=== PATIENT | female | born 1960 | race Caucasian/White ===

== ENCOUNTER 2021-12-31 01:17 | Day surgery (SDC) | payer BC, SELFPAY ==
[2021-12-17 09:24] VITALS: BMI 29.0
--- NOTE | 2021-12-30 14:31 | WPDANESEPPF ---
Anes - Initial Pre Proc Eval Procedure: Operation Date: 12/31/21 09:00 Proposed Procedures p Screening Colonoscopy - Leonel Horn MD <Spenser Hodge DO - Last Filed: 12/30/21 14:32> Date/Time: 12/30/21 14:31 <Spenser Hodge DO - Last Filed: 12/30/21 14:32> Surgeon: Leonel Horn MD <Spenser Hodge DO - Last Filed: 12/30/21 14:32> Pre Op Diagnosis: neoplasm screening <Spenser Hodge DO - Last Filed: 12/30/21 14:32> Patient Data Age: 61 Gender: F Height: 1.68 m Weight: 81.6 kg <Spenser Hodge DO - Last Filed: 12/30/21 14:32> Allergies Allergy/AdvReac Type Severity Reaction Status Date / Time No Known Allergies Allergy Verified 12/31/21 08:04 <Spenser Hodge DO - Last Filed: 12/30/21 14:32> Patient hx anesthesia problems: none <Kenzie Suero CRNA - Last Filed: 12/31/21 08:16> Family hx anesthesia problems: none <Kenzie Suero CRNA - Last Filed: 12/31/21 08:16> Results Review: All pre-operative results and documents have been reviewed as part of the pre-operative evaluation. <Spenser Hodge DO - Last Filed: 12/30/21 14:32> [facility] Past Medical History Medical History: Medical History (Updated 12/30/21 @ 14:31 by Spenser Hodge DO) Dermatitis Fatigue <Spenser Hodge DO - Last Filed: 12/30/21 14:32> Surgical History Surgical History: Surgical History (Updated 12/30/21 @ 14:31 by Spenser Hodge DO) History of hysterectomy <Spenser Hodge DO - Last Filed: 12/30/21 14:32> Family History Family History: Family History Father Hypertension Family history of chronic obstructive pulmonary disease Malignant neoplasm of prostate Family history of diabetes mellitus in first degree relative Mother Hypertension Family history of Parkinson's disease Family history of hypothyroidism Family history of congestive heart failure Family history of thyroid disease Grandparent Cerebrovascular accident Diabetes mellitus Sibling Family history of thyroid disease Family history of pancreatic cancer Other Family history of cardiovascular disease Family history of kidney disease Family history of malignant neoplasm <Spenser Hodge DO - Last Filed: 12/30/21 14:32> Social History Social History: Social History Smoking status: Never smoker Alcohol intake: current Alcohol use details: socially Substance use: never Substance use type: does not use Living arrangements: with family Spiritual care concerns: No <Spenser Hodge DO - Last Filed: 12/30/21 14:32> Anes - Eval Final PreProcedure Day of Procedure 12/30/21 14:31 <Spenser Hodge DO - Last Filed: 12/30/21 14:32> Patient weight: overweight <Spenser Hodge DO - Last Filed: 12/30/21 14:32> Heart: regular rate and rhythm <Spenser Hodge DO - Last Filed: 12/30/21 14:32> Lungs: clear to auscultation <Spenser Hodge DO - Last Filed: 12/30/21 14:32> Airway: Mallampati scale class II <Spenser Hodge DO - Last Filed: 12/30/21 14:32> Neurological: alert and oriented <Spenser Hodge DO - Last Filed: 12/30/21 14:32> Last oral intake: >/= 8 hours <Spenser Hodge DO - Last Filed: 12/30/21 14:32> ASA classification: II <Spenser Hodge DO - Last Filed: 12/30/21 14:32> Emergent: no <Spenser Hodge DO - Last Filed: 12/30/21 14:32> Anesthetic plan: proceed <Spenser Hodge DO - Last Filed: 12/30/21 14:32> Anesthesia type and monitoring: general GIVS and standard monitoring <Spenser Hodge DO - Last Filed: 12/30/21 14:32> Results Review: All pre-operative results and documents have been rev
--- NOTE | 2021-12-30 15:15 | PM.HPGS ---
History of Present Illness History of Present Illness Consent: Risks, benefits, and alternatives have been discussed and questions answered. Patient agrees to proceed with procedure. Chief complaint: neoplasm screening Narrative: Angelica Whitaker is a 61 year old female Who was referred for colon cancer screening. 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 Eventually she had a right colectomy to remove that lesion. Review of Systems Review of Systems: All systems reviewed & are unremarkable except as noted in HPI and below PMFSH Past Medical History Medical History Dermatitis Fatigue Surgical History Surgical History History of hysterectomy Family History Family History Father Hypertension Family history of chronic obstructive pulmonary disease Malignant neoplasm of prostate Family history of diabetes mellitus in first degree relative Mother Hypertension Family history of Parkinson's disease Family history of hypothyroidism Family history of congestive heart failure Family history of thyroid disease Grandparent Cerebrovascular accident Diabetes mellitus Sibling Family history of thyroid disease Family history of pancreatic cancer Other Family history of cardiovascular disease Family history of kidney disease Family history of malignant neoplasm Social History Social History Smoking status: Never smoker Alcohol intake: current Alcohol use details: socially Substance use: never Substance use type: does not use Living arrangements: with family Spiritual care concerns: No Meds Home Medications and Allergies Allergies Allergy/AdvReac Type Severity Reaction Status Date / Time No Known Allergies Allergy Verified 12/31/21 08:04 Exam Resp: Auscultation: clear to auscultation bilaterally Cardio: Rate: regular rate Rhythm: regular rhythm GI: GI Palp: Yes Soft to palpation and No Tenderness to palpation present (GI) Assessment and Plan Assessment and plan (1) Screening for colon cancer: Code(s): Z12.11 - Encounter for screening for malignant neoplasm of colon Status: Acute Assessment and Plan: Colonoscopy with possible biopsy or polypectomy or cautery or injection of substances.
[2021-12-31 08:05] VITALS: BP 129/71; PULSE 87; RESP 16; TEMP 36.4; O2SAT 100; BMI 29.0
[2021-12-31] MEDS: LACTATED RINGERS 1,000 ML 150 ML IV CONT (08:15)
[2021-12-31 09:06] VITALS: BP 107/61; PULSE 85; RESP 15; O2SAT 100
[2021-12-31 09:16] VITALS: BP 119/70; PULSE 70; RESP 24; O2SAT 100
[2021-12-31 09:26] VITALS: BP 119/67; PULSE 70; RESP 16; O2SAT 100
== END 2021-12-31 09:34 | disposition home or self-care (01) ==
PROVIDERS: PCP Family Medicine; Visit Provider Internal Medicine Gastroenterology
PROC: 0DJD8ZZ Inspection of Lower Intestinal Tract, Via Natural or Artificial Opening Endoscopic (ICD-10-PCS; CPT 45378; principal; 2021-12-31 09:00)
DX: Z12.11 Encounter for screening for malignant neoplasm of colon (principal); Z86.010 Personal history of colon polyps; K63.89 Other specified diseases of intestine
CPT/HCPCS: 45378; J2704; J7120

== ENCOUNTER 2022-02-01 16:47 | Outpatient (CLI) | payer BC, SELFPAY ==
--- NOTE | ~2022-02-01 | DEXA_ITS ---
Bone Density Report Name: STEPHAN NUNEZ Age: 61 Sex: Female Ethnicity: White Date of : 1960 Indication: postmenopausal; screening for osteoporosis; hysterectomy; Referring Provider: TAMMY YOUNG Study: Bone densitometry was performed. Exam Date: February 01, 2022 Accession number: [id number] Bone Density: Region BMD T-score Z-score Classification AP Spine(L1-L4) 0.987 -0.5 1.1 Normal Femoral Neck (Left) 0.808 -0.4 1.1 Normal Total Hip (Left) 0.956 0.1 1.3 Normal Femoral Neck (Right) 0.771 -0.7 0.8 Normal Total Hip (Right) 0.895 -0.4 0.8 Normal Total Hip Mean 0.925 -0.2 1.1 Normal World Health Organization criteria for BMD impression classify patients as: Normal (T-score at or above -1.0), Osteopenia (T-score between -1.0 and -2.5), or Osteoporosis (T-score at or below -2.5). 10-year Fracture Risk: FRAX not reported because: All T-scores for Spine Total, Hip Total, Femoral Neck at or above -1.0 Clinical Information Provided by Patient: Has the following medical conditions: Hysterectomy Patient maximum height was 65 Menopause Age: 31 Drinks caffeinated beverages Onset of menses at age 11 Number of children 3 Impression: The patient has normal bone mass. Discussion: BONE DENSITY IS ABOVE THE MINIMUM DESIRABLE LEVEL AT ALL SKELETAL SITES TESTED. This patient?s bone mineral density is above the minimum desirable level (T-score -1.0 or better) at all sites measured. The patient should follow a healthful lifestyle (good nutrition with adequate calcium and vitamin D, and appropriate weight-bearing exercise). Follow-Up: Consider repeating this study in 5 years or sooner if there is some new clinical indication. Reported by: DARWIN on 02/01/2022 5:10:00 PM. Reviewed, dictated and finalized at location AMalika RAMIREZ
--- NOTE | ~2022-02-01 | MM_ITS ---
EXAMINATION: MM screening rafael BI w sandee HISTORY: Screening mammogram TECHNIQUE: Craniocaudal and mediolateral oblique 3-D tomosynthesis images were obtained and synthetic 2-D images were generated. CAD analysis was submitted and interpreted. COMPARISON: 05/2016 bilateral screening mammogram BREAST PARENCHYMAL COMPOSITION: There are scattered areas of fibroglandular density. FINDINGS: New 3 mm circumscribed mass is noted anterior aspect of the upper inner left breast at appr oximately 10:00 position. Diagnostic left mammogram and left breast ultrasound examination are recommended. Otherwise there is no evidence of suspicious mass, calcification, or architectural distortion to sugg est malignancy in either breast. There has been no other suspicious interval change. IMPRESSION: 1. New left upper inner quadrant 3 mm mass 2. Diagnostic left mammogram and left breast ultrasound examination are recommended. BI-RADS Category 0: Incomplete: Needs additional imaging evaluation. Reviewed, dictated and finalized at location A. IMPRESSION: 1. New left upper inner quadrant 3 mm mass 2. Diagnostic left mammogram and left breast ultrasound examination are recomme nded. BI-RADS Category 0: Incomplete: Needs additional imaging evaluation.
== END 2022-02-01 16:48 | disposition home or self-care (01) ==
PROVIDERS: PCP Family Medicine; Visit Provider Physician Assistant Medical
DX: Z12.31 Encounter for screening mammogram for malignant neoplasm of breast (principal); Z13.820 Encounter for screening for osteoporosis; Z78.0 Asymptomatic menopausal state; R92.8 Other abnormal and inconclusive findings on diagnostic imaging of breast
CPT/HCPCS: 77063; 77067; 77080

== ENCOUNTER 2022-02-15 12:34 | Outpatient (CLI) | payer BC, SELFPAY ==
--- NOTE | ~2022-02-15 | MMUS_ITS ---
EXAMINATION: MM diagnostic rafael LT w sandee, US breast LT limited HISTORY: Left breast mass on screening mammogram TECHNIQUE: Additional 3-D tomosynthesis images of the left breast were performed and synthetic 2-D im ages were generated. CAD analysis was submitted and interpreted. High resolution limited left breast ultrasound was performed. COMPARISON: 02/01/2022, 05/20/2016, 12/06/2007 FINDINGS: MAMMOGRAPHIC FINDINGS: There is a 4 mm oval, obscured, equal density mass in the anterior/middle third of the inner breast a t the 9:00 3 cm from the nipple. No suspicious calcification or architectural distortion are identifi ed. ULTRASOUND: There is a 3 mm cyst at the 9:00 location 2 cm from the nipple. IMPRESSION: 1. No mammographic or sonographic evidence of malignancy. 2. Recommend routine screening mammography in one year. BI-RADS Category 2: Benign finding(s). Reviewed, dictated and finalized at location A. IMPRESSION: 1. No mammographic or sonographic evidence of malignancy. 2. Recommend routine screening mammography in one year. BI-RADS Category 2: Benign finding(s).
== END 2022-02-15 12:35 | disposition home or self-care (01) ==
PROVIDERS: PCP Family Medicine; Visit Provider Physician Assistant Medical
DX: R92.8 Other abnormal and inconclusive findings on diagnostic imaging of breast (principal)
CPT/HCPCS: 76642; 77061; 77065; G0279

== ENCOUNTER 2024-03-04 14:07 | Outpatient (CLI) | payer OTHER, BC, SELFPAY ==
--- NOTE | ~2024-03-04 | XR_ITS ---
EXAMINATION: [id number] DATE: 03/04/2024 14:31 INDICATION: Left foot pain, swelling and bruising TECHNIQUE: Dorsoplantar, two oblique and lateral views of the left foot were obtained. COMPARISON: None. FINDINGS: Nondisplaced comminuted intra-articular fracture of the cuboid with 2 subtle lucent fracture planes e xtending to the distal articular surface. There also appears to be a subtle fracture plane extending to the margin of the articular surface at the calcaneocuboid articulation. Alignment remains essentia lly anatomic. No other fractures identified. Joint spaces appear relatively preserved. Prominent soft tissue swelling over the dorsum of the foot. IMPRESSION: 1. Displaced comminuted intra-articular fracture of the cuboid. Reviewed, dictated and finalized at location B.
== END 2024-03-04 14:08 | disposition home or self-care (01) ==
PROVIDERS: PCP Family Medicine
DX: S92.212A Displaced fracture of cuboid bone of left foot, initial encounter for closed fracture (principal); X58.XXXA Exposure to other specified factors, initial encounter
CPT/HCPCS: 73630

== ENCOUNTER 2024-10-29 12:02 | Outpatient (CLI) | payer OTHER, SELFPAY ==
--- NOTE | ~2024-10-29 | XR_ITS ---
Right foot Technique: AP, oblique, and lateral views were obtained. Clinical History: Injury Findings: No acute fracture or dislocation is seen. Osseous alignment is anatomic. Joint spaces are p reserved without erosive or degenerative change. Soft tissues are unremarkable. Impression: Unremarkable right foot radiographs. Reviewed, dictated and finalized at location . Impression: Unremarkable right foot radiographs.
== END 2024-10-29 12:03 | disposition home or self-care (01) ==
LOC: GOSHIMG 12:03
PROVIDERS: PCP Family Medicine; Visit Provider Family Medicine
DX: M79.671 Pain in right foot (principal)
CPT/HCPCS: 73630